=== PATIENT | male | born 1970 | race Caucasian/White ===

== ENCOUNTER 2019-03-16 10:17 | Emergency (ER) | payer BC ==
[2019-03-16] MEDS ORDERED: Adacel (T-DAP) 0.5 ML SYRINGE ONE (11:17)
--- NOTE | 2019-03-16 11:34 | RAD ---
RIGHT ANKLE THREE VIEWS: INDICATIONS: Injury. FINDINGS: There is osteoarthritis of the right ankle, moderate in degree. No acute fracture or dislocation aug[place] ntified. There are small heterotopic densities about the right ankle. IMPRESSION: Osteoarthritis without evidence of acute fracture. POS: [facility]
[2019-03-16] MEDS ORDERED: Bacitracin 1 PK ONE (11:45)
== END 2019-03-16 11:50 | disposition home or self-care (01) ==
LOC: SCSER 10:17
DX: S91.031A Puncture wound without foreign body, right ankle, initial encounter (principal); F17.220 Nicotine dependence, chewing tobacco, uncomplicated; X58.XXXA Exposure to other specified factors, initial encounter
CPT/HCPCS: 90471; 90715